=== PATIENT | male | born 1995 | race Two or more races ===

== ENCOUNTER 2019-12-24 22:25 | Emergency (ER) | payer SELFPAY ==
[~2019-12-24] VITALS: Ht 185.4 cm; Wt 117.9 kg
[2019-12-24 22:42] VITALS: BP 118/68
[2019-12-24 23:13] LABS: Urine Amorphous Crystal FEW /hpf (None Seen); Urine Bacteria FEW /hpf (None Seen); Urine Blood Negative /uL (Negative); Urine Mucus MODERATE (None Seen); Urine Specific Gravity 1.035 (1.001-1.035); Urine WBC 2 /hpf (0 - 3)
== END 2019-12-24 23:39 | disposition left against medical advice (07) ==
LOC: ER 22:25
DX: R10.33 Periumbilical pain (principal); R11.2 Nausea with vomiting, unspecified; Z53.21 Procedure and treatment not carried out due to patient leaving prior to being seen by health care provider
CPT/HCPCS: 81001